=== PATIENT | female | born 1990 | race Caucasian/White ===

== ENCOUNTER 2019-12-25 08:12 | Inpatient (IN) ==
[2019-12-25] MEDS ORDERED: 0.9 % Sodium Chloride 1,000 ML IVC ONE (08:45)
[2019-12-25] MEDS ORDERED: Ondansetron 4 MG/2 ML VIAL IVP ONE (08:47)
[2019-12-25] MEDS ORDERED: Isovue-370 500 ML BOTTLE IVP ONE ×2 (08:48→12:40)
[2019-12-25 09:32] LABS: Basophils % 0.2 %; Hemoglobin 11.3 g/dL (11.5-15.4); Immature Granulocytes % 0.9 % (0-4)
[2019-12-25 09:34] LABS: Basophils # 0.1 K/mcL (0.0-0.2); Lymphocytes # 0.7 K/mcL (0.6-4.6); Lymphocytes % 2.3 %; Mean Corpuscular HGB Conc 33.2 g/dL (31.6-35.5); Mean Corpuscular Volume 93.4 fL (83.0-100.0); Mean Platelet Volume 8.6 fL (9.4-12.4); Neutrophils # 29.6 K/mcL (1.6-8.9); Platelet Count 337 K/mcL (140-400); Red Blood Count 3.64 M/mcL (3.82-4.97); Red Cell Distribution Width 12.1 % (11.5-14.5); Segmented Neutrophils % 93.6 %
[2019-12-25 09:42] LABS: White Blood Count 31.6 K/mcL (4.3-11.1)
[2019-12-25] MEDS ORDERED: Vancomycin 1,000 MG VIAL IVPB ONE (09:47)
[2019-12-25 09:54] LABS: Alanine Aminotransferase 8 Units/L (7-52); Albumin/Globulin Ratio 1.3 (1.1-2.2); Alkaline Phosphatase 91 Units/L (34-104); Aspartate Amino Transferase 11 Units/L (13-39); BUN/Creatinine Ratio 20 (6-26); Bilirubin,Direct 0.1 mg/dL (0.0-0.2); Bilirubin,Indirect 0.5 mg/dL (0.0-1.0); Bilirubin,Total 0.6 mg/dL (0.3-1.0); Blood Urea Nitrogen 13 mg/dL (6-20); Calcium 9.4 mg/dL (8.6-10.3); Carbon Dioxide 24 mEq/L (23-29); Chloride 103 mEq/L (98-107); Globulin 3.2 g/dL (2.4-3.5); Glucose 106 mg/dL (70-105); Lipase 4 Units/L (11-82); Osmolality,Calculated 277 (280-300); Potassium 3.8 mEq/L (3.5-5.1); Sodium 133 mEq/L (136-145); Total Protein 7.2 g/dL (6.4-8.9); eGFR For African Americans > 60 (> 60); eGFR For Non-African Americans > 60 (> 60)
[2019-12-25] MEDS ORDERED: *HR* Promethazine 25 MG/ML VIAL IVP ONE (10:02)
[2019-12-25] MEDS ORDERED: 0.9 % Sodium Chloride 1,000 ML IV ONE ×2 (10:08→11:59)
[2019-12-25] MEDS ORDERED: cefTRIAXone 2,000 MG in Water for inj. (sterile) 20 ML IVP ONE (10:24)
[2019-12-25] MEDS ORDERED: 0.9 % Sodium Chloride 250 ML ONE (10:52)
[2019-12-25] MEDS ORDERED: *HR* FentaNYL (PF) 100 MCG/2 ML VIAL IVP ONE (11:46)
[2019-12-25 12:20] LABS: Bilirubin,Urine Negative (Negative); Blood,Urine Negative (Negative); Clarity,Urine Clear (Clear); Color,Urine Yellow (Yellow); Glucose,Urine (UA) Normal (Normal); Ketones,Urine 15 mg/dL (Negative); Leukocyte Esterase,Urine Negative (Negative); Nitrite,Urine Negative (Negative); Protein,Urine Negative (Neg-Trace); Specific Gravity,Urine > 1.030 (1.010-1.025); Urobilinogen,Urine Normal (Normal)
[2019-12-25] MEDS ORDERED: Acyclovir 500 MG in D5% in Water 100 ML IVPB ONE (12:30)
[2019-12-25 12:32] LABS: Amphetamine Screen,Urine Positive ng/mL (Cutoff=1000); Barbiturate Screen,Urine Negative ng/mL (Cutoff=200); Benzodiazepines Screen,Urine Negative ng/mL (Cutoff=200); Cannabinoid Screen,Urine Negative ng/mL (Cutoff = 50); Cocaine Screen,Urine Negative ng/mL (Cutoff= 300); Opiate Screen,Urine Positive ng/mL (Cutoff=300); Phencyclidine Screen,Urine Negative ng/mL (Cutoff=25)
[2019-12-25] MEDS ORDERED: Naloxone 0.4 MG/ML INJ IVP PRN ×3 (12:56→13:43)
[2019-12-25] MEDS ORDERED: tiZANidine 4 MG TABLET PO PRN (14:00)
[2019-12-25] MEDS ORDERED: Gabapentin 300 MG CAPSULE PO PRN (14:00)
[2019-12-25] MEDS: cefTRIAXone 2,000 MG in Water for inj. (sterile) 20 ML IVP SCH (15:04)
[2019-12-25] MEDS ORDERED: Saline Nasal Spray 44 ML BOTTLE NS PRN (15:14)
[2019-12-25] MEDS: Ibuprofen 400 MG TABLET PO PRN (15:42)
[2019-12-25] MEDS ORDERED: Cefepime HCl 2,000 MG in 0.9 % Sodium Chloride Mini Bag 100 ML IVPB SCH (16:00)
[2019-12-25] MEDS: Oxymetazoline Nasal SPRAY BOTTLE NS SCH (17:42)
[2019-12-25] MEDS: *HR* Heparin 5,000 UNIT/ML VIAL SQ SCH (17:42)
[2019-12-25] MEDS: Ringers Solution, Lactated 1,000 ML IVC SCH (17:42)
[2019-12-25] MEDS: *HR* HYDROcodone/Acet 5/325 mg TABLET PO PRN (17:56)
[2019-12-25 19:05] LABS: Adenovirus Not Detected (Not Detect); Bordetella Pertussis Not Detected (Not Detect); Chlamydophila pneumoniae Not Detected (Not Detect); Coronavirus 229E Not Detected (Not Detect); Coronavirus HKU1 Not Detected (Not Detect); Coronavirus NL63 Not Detected (Not Detect); Coronavirus OC43 Not Detected (Not Detect); Human Metapneumovirus Not Detected (Not Detect); Human Rhinovirus/Enterovirus Not Detected (Not Detect); Influenza A Subtype 2009 H1 Not Detected (Not Detect); Influenza B Not Detected (Not Detect); Mycoplasma pneumoniae Not Detected (Not Detect); Parainfluenza Virus 1 Not Detected (Not Detect); Parainfluenza Virus 2 Not Detected (Not Detect); Parainfluenza Virus 3 Not Detected (Not Detect); Parainfluenza Virus 4 Not Detected (Not Detect); Respiratory Syncytial Virus Not Detected (Not Detect)
[2019-12-25] MEDS: Acetaminophen 325 MG TABLET PO PRN (20:26)
[2019-12-25] MEDS: Fluticasone Propionate Nasal 50 MCG/SPRAY BOTTLE NS SCH (20:26)
[2019-12-25] MEDS: Acyclovir 500 MG in D5% in Water 100 ML IVPB SCH (23:57)
[2019-12-26] MEDS: *HR* HYDROcodone/Acet 5/325 mg TABLET PO PRN ×2 (02:26→11:50)
[2019-12-26] MEDS: Ringers Solution, Lactated 1,000 ML IVC SCH ×3 (03:59→23:31)
[2019-12-26 05:58] LABS: Basophils % 0.2 %; Hematocrit 30.4 % (35.3-44.9); Immature Granulocytes % 1.2 % (0-4); Lymphocytes # 0.8 K/mcL (0.6-4.6); Lymphocytes % 3.2 %; Mean Corpuscular HGB Conc 31.6 g/dL (31.6-35.5); Mean Corpuscular Hemoglobin 30.1 pg (28.0-33.3); Mean Corpuscular Volume 95.3 fL (83.0-100.0); Mean Platelet Volume 9.1 fL (9.4-12.4); Monocytes # 0.8 K/mcL (0.0-1.3); Monocytes % 3.1 %; Neutrophils # 22.7 K/mcL (1.6-8.9); Platelet Count 253 K/mcL (140-400); Red Blood Count 3.19 M/mcL (3.82-4.97); Red Cell Distribution Width 12.6 % (11.5-14.5); Segmented Neutrophils % 92.3 %; White Blood Count 24.6 K/mcL (4.3-11.1)
[2019-12-26 06:01] LABS: Basophils # 0.1 K/mcL (0.0-0.2)
[2019-12-26 06:02] LABS: Hemoglobin 9.6 g/dL (11.5-15.4)
[2019-12-26 06:14] LABS: BUN/Creatinine Ratio 12 (6-26); Blood Urea Nitrogen 7 mg/dL (6-20); Calcium 8.2 mg/dL (8.6-10.3); Carbon Dioxide 24 mEq/L (23-29); Chloride 105 mEq/L (98-107); Glucose 120 mg/dL (70-105); Magnesium 1.7 mg/dL (1.6-2.6); Osmolality,Calculated 279 (280-300); Phosphorous 1.2 mg/dL (2.7-4.5); Potassium 3.3 mEq/L (3.5-5.1); Sodium 135 mEq/L (136-145); eGFR For African Americans > 60 (> 60); eGFR For Non-African Americans > 60 (> 60)
[2019-12-26] MEDS: Ondansetron 4 MG/2 ML VIAL IVP PRN ×2 (06:23→15:38)
[2019-12-26] MEDS: *HR* Heparin 5,000 UNIT/ML VIAL SQ SCH ×2 (06:23→18:38)
[2019-12-26] MEDS: Oxymetazoline Nasal SPRAY BOTTLE NS SCH ×2 (06:26→18:38)
[2019-12-26 06:39] LABS: Platelet Estimate Normal (Normal)
[2019-12-26] MEDS: Ascorbic Acid 500 MG TABLET PO SCH (08:49)
[2019-12-26] MEDS: Acetaminophen 325 MG TABLET PO PRN ×2 (08:49→20:14)
[2019-12-26] MEDS: Acyclovir 500 MG in D5% in Water 100 ML IVPB SCH ×2 (08:49→15:38)
[2019-12-26] MEDS: Fluticasone Propionate Nasal 50 MCG/SPRAY BOTTLE NS SCH (08:50)
[2019-12-26] MEDS: Potassium Phosphate 44 MEQ in 0.9 % Sodium Chloride 250 ML IVPB ONE (13:07)
[2019-12-26] MEDS: cefTRIAXone 2,000 MG in Water for inj. (sterile) 20 ML IVP SCH (13:18)
[2019-12-26] MEDS: Ibuprofen 400 MG TABLET PO PRN (13:19)
[2019-12-26 14:52] LABS: Acinetobacter baumannii by PCR Not Detected (Not Detect); Enterococcus by PCR Not Detected (Not Detect); Staphylococcus aureus by PCR Not Detected (Not Detect); Staphylococcus by PCR Not Detected (Not Detect); Streptococcus agalactiae(B)PCR Not Detected (Not Detect); Streptococcus pneumoniae PCR Not Detected (Not Detect); Streptococcus pyogenes (A) PCR Not Detected (Not Detect)
[2019-12-26 14:53] LABS: Candida albicans by PCR Not Detected (Not Detect); Candida glabrata by PCR Not Detected (Not Detect); Candida krusei by PCR Not Detected (Not Detect); Candida parapsilosis by PCR Not Detected (Not Detect); Candida tropicalis by PCR Not Detected (Not Detect); Enterobacter cloacae Cmplx PCR Not Detected (Not Detect); Enterobacteriaceae by PCR Not Detected (Not Detect); Escherichia coli by PCR Not Detected (Not Detect); Klebsiella oxytoca by PCR Not Detected (Not Detect); Klebsiella pneumoniae by PCR Not Detected (Not Detect); Proteus by PCR Not Detected (Not Detect); Pseudomonas aeruginosa by PCR Not Detected (Not Detect); Serratia marcescens by PCR Not Detected (Not Detect); Streptococcus by PCR DETECTED (Not Detect)
[2019-12-27] MEDS: Acyclovir 500 MG in D5% in Water 100 ML IVPB SCH ×3 (01:42→18:46)
[2019-12-27] MEDS: *HR* HYDROcodone/Acet 5/325 mg TABLET PO PRN ×2 (03:25→11:53)
[2019-12-27 04:42] LABS: Hematocrit 29.2 % (35.3-44.9); Hemoglobin 9.6 g/dL (11.5-15.4); Mean Corpuscular HGB Conc 32.9 g/dL (31.6-35.5); Mean Corpuscular Hemoglobin 30.2 pg (28.0-33.3); Mean Corpuscular Volume 91.8 fL (83.0-100.0); Mean Platelet Volume 9.1 fL (9.4-12.4); Platelet Count 246 K/mcL (140-400); Red Blood Count 3.18 M/mcL (3.82-4.97); Red Cell Distribution Width 12.6 % (11.5-14.5); White Blood Count 18.6 K/mcL (4.3-11.1)
[2019-12-27 05:03] LABS: Magnesium 1.9 mg/dL (1.6-2.6); Phosphorous 1.2 mg/dL (2.7-4.5)
[2019-12-27 05:05] LABS: BUN/Creatinine Ratio 13 (6-26); Blood Urea Nitrogen 7 mg/dL (6-20); Calcium 8.1 mg/dL (8.6-10.3); Carbon Dioxide 22 mEq/L (23-29); Chloride 106 mEq/L (98-107); Glucose 136 mg/dL (70-105); Osmolality,Calculated 280 (280-300); Potassium 3.6 mEq/L (3.5-5.1); Sodium 135 mEq/L (136-145); eGFR For African Americans > 60 (> 60); eGFR For Non-African Americans > 60 (> 60)
[2019-12-27] MEDS: *HR* Heparin 5,000 UNIT/ML VIAL SQ SCH ×2 (06:34→18:47)
[2019-12-27] MEDS: Oxymetazoline Nasal SPRAY BOTTLE NS SCH ×2 (06:34→18:47)
[2019-12-27] MEDS: Ringers Solution, Lactated 1,000 ML IVC SCH (06:41)
[2019-12-27] MEDS: Potassium Phosphate 44 MEQ in 0.9 % Sodium Chloride 250 ML IVPB ONE (07:18)
[2019-12-27] MEDS ORDERED: Potassium Phosphate 44 MEQ in 0.9 % Sodium Chloride 250 ML IVPB ONE (07:29)
[2019-12-27] MEDS ORDERED: Gadolinium Contrast Agent (WT Based) IV PRN (07:30)
[2019-12-27] MEDS: Acetaminophen 325 MG TABLET PO PRN (07:51)
[2019-12-27] MEDS: Ascorbic Acid 500 MG TABLET PO SCH (07:51)
[2019-12-27] MEDS: Fluticasone Propionate Nasal 50 MCG/SPRAY BOTTLE NS SCH (07:53)
[2019-12-27] MEDS ORDERED: Ibuprofen 400 MG TABLET PO PRN (10:41)
[2019-12-27] MEDS ORDERED: Ringers Solution, Lactated 1,000 ML IVC SCH (12:15)
[2019-12-27] MEDS ORDERED: *HR* LORazepam 2 MG/ML VIAL IVP ONE (13:25)
[2019-12-27] MEDS ORDERED: *HR* OxyCODONE/APAP 5/325 TABLET PO ONE (13:32)
[2019-12-27] MEDS: cefTRIAXone 2,000 MG in Water for inj. (sterile) 20 ML IVP SCH (15:18)
[2019-12-27 15:22] VITALS: BP 122/80
[2019-12-27] MEDS ORDERED: Aminoglycoside Consult 1 EACH MC ONE (21:11)
== END 2019-12-27 21:12 | disposition short-term general hospital (02) | DRG 871 ==
LOC: 2NENU 08:12 → EMEROOARM 08:12 → ICNU 12:51 → SUATTDRO 13:36 → 2NENU 13:47
PROVIDERS: ADMIT Internal Medicine; ATTEND Internal Medicine